=== PATIENT | male | born 1955 | race Caucasian/White ===

== ENCOUNTER 2018-03-26 08:54 | Day surgery (SDC) | payer BC, SELFPAY ==
[2018-03-26] VITALS (7 sets, daily range): BP systolic 115–135; BP diastolic 75–91; PULSE 48–57; RESP 14–18; TEMP 36.2–37.1; O2SAT 98–100; BMI 27.0
--- NOTE | 2018-03-26 09:02 | EKG12_ITS ---
Test Reason : PRE OP Blood Pressure : / mmHG Vent. Rate : 061 BPM Atrial Rate : 061 BPM P-R Int : 166 ms QRS Dur : 092 ms QT Int : 402 ms P-R-T Axes : 039 007 034 degrees QTc Int : 404 ms Normal sinus rhythm Normal ECG No previous ECGs available Confirmed by ORQUIDEA YUN, QUIRINO ([id number]), map editor FRANCIS SINGLETON ([id number]) on 03/30/2018 3:22:28 PM Referred By: Damion Ellison Confirmed By:QUIRINO HEARD MD
[2018-03-26 09:31] LABS: Hematocrit 42.3 % (40-54); Hemoglobin 13.8 g/dl (13.0-16.5); Mean Corp Hgb Conc 32.6 g/gl (32-36); Mean Corpuscular Hgb 29.1 pg (27.0-32.0); Mean Corpuscular Volume 89.2 fL (80-94); Mean Platelet Vol. 9.2 fl (6.2-12.0); Platelet Count 186 K/mm3 (150-450); RBC Distribution Width CV 12.7 % (11.6-14.6); RBC Distribution Width SD 41.2 fl (35.1-43.9); Red Blood Count 4.74 M/mm3 (4.6-6.2); White Blood Count 5.2 K/mm3 (4.4-11.0)
[2018-03-26 09:38] LABS: Scan Indicated on CBC? Y/N NO
[2018-03-26 09:47] LABS: Anion Gap 6 (5-15); BUN 24 mg/dL (7-18); BUN/Creat Ratio 22.4 RATIO (10-20); Calcium,Total 8.4 mg/dL (8.5-10.1); Chloride 108 mmol/L (98-107); Creatinine, Serum 1.07 mg/dL (0.70-1.30); EST Glomerular Filtration Rate 75 mL/min (>60); Est Glom Filt Rate - Afr Amer 90 mL/min (>60); Estimated Creatinine Clearance 79.57 ml/min; Glucose 99 mg/dL (74-106); Potassium 4.3 mmol/L (3.5-5.1); Sodium Level 140 mmol/L (136-145)
[2018-03-26] MEDS: Cefazolin 2 GM in 0.9% Normal Saline 100 ML IV (11:09)
--- NOTE | 2018-03-26 11:15 | PCM.DC.GS ---
Discharge Diet: Light diet - advance as tolerated - if you have questions about your diet instructions, please talk to you doctor. Discharge Activity: May Not Drive - for 1 week or while taking narcotic pain medicine. May shower in (days): 1 Lifting Restrictions: 10 pounds Call your doctor if your incision/area has: Continuous Slow Oozing, Sudden Increased Bleeding, Increased Pain/ Swelling, Increased Redness, Foul Smelling Discharge Call your doctor if you observe: Fever of 101 or Higher Suture Line Care: Avoid Pulling/Pushing, Avoid Pinching/Bending Additional Dressing/Incision Instructions:: Change or remove dressing in 4 days. Leave steri-strips in place for 1 week. Allergies/Adverse Reactions: Allergies No Known Allergies Allergy (Verified 03/16/18 10:48) Medications to take at Discharge glucosamine HCl 1,500 mg tablet 1,500 mg PO QDAY 03/10/18 Hydrocodone Bitart/Apap 5-325 [[place] 5MG-325MG] 1 tablet PO Q6H PRN PRN 3 Days #8 tablet 03/26/18 The following prescriptions were given: Hydrocodone Bitart/Apap 5-325 [[place] 5MG-325MG] 1 tablet PO Q6H PRN PRN 3 Days #8 tablet PRN Reason: Pain Primary Care Physician: Jaskaran Whiteside MD [Primary Care Provider] - Please Follow Up With: Damion Ellison MD - [phone] When: Call to make an appointment to be seen in about 10 days.
[2018-03-26] MEDS: Bupivacaine Mpf 0.5% 30 ML VIAL (11:55)
--- NOTE | 2018-03-26 11:56 | PCM.OPRPT ---
Problem List (1) Umbilical hernia Status: Acute Qualifiers: Obstruction and gangrene presence: without obstruction or gangrene (2) Nevus Status: Acute Report of Operation Date of Procedure: 03/26/18 Pre-Operative Diagnosis: Irregular flat nevus at the umbilicus. umbilical hernia Post-Operative Diagnosis: Same Surgery/Procedure Performed:: Excision umbilical nevus with 2 x 0.5 cm ellipse. Skin lesion measuring approximately 1.1 cm x 0.3 cm. Umbilical herniorrhaphy with 6.4 cm ventral X mesh Description of Surgical Findings:: Timeout and informed consent was obtained. 62-year-old gent was taken the operating room. He was placed on the table. He underwent general anesthesia. Ancef 2 g given intravenously preoperatively. The abdomen sterilely prepped and draped. A curvilinear incision was created the superior aspect of the umbilicus. This is where the skin nevus was located and so a elliptical excision measuring 2 x 0.5 cm was used to excise this elongated nevus. That skin specimen was submitted separately. Sharp dissection was then continued down into the subcutaneous tissue. The hernia sac and contents identified and carefully completely dissected free. Circumferential dissection was then performed around the umbilical site. The defect measured approximately 2 cm diameter. I was able to get into the preperitoneal plane and elevated tissue internally. Having achieved that I placed a 6.4 cm ventral X mesh into the preperitoneal space. It opened very nicely. I secured the tails with interrupted 0 Nurolon. The skin edges were approximated transversely with the same taking care to help secure the mesh. Excellent closure was achieved. The wound was then closed with multiple interrupted 4-0 Monocryl subdermal stitches. Steri-Strips applied cottonball Telfa OpSite dressing pressure dressing. Sponge and instrument and needle counts were reported the surgeon to be correct. Specimens include the nevus and the umbilical hernia sac and contents. Drains none. Blood loss minimal. Damion Ellison M.D., F.A.C.S. Type of Anesthesia:: General Anesthesiologist: Arnaldo Cassidy
--- NOTE | 2018-03-27 | MISC_PTH ---
PATIENT: CHIN ARTEAGA LOC: [facility] [place] U#:[id number] AGE/SX: 62/M ROOM: RE03/26/[address]: Dr. Damion Ellison MD : [id number] BED: DIS: 03/26/2018 SPEC #: [id number] RECD: 03/27/18 13:23 STATUS: JUAN MIGUEL ELENA #: [id number] ADELINA: 03/27/18 00:[address]: Damion Ellison DEPT: SURGICAL PATHOLOGY RECD BY: Derek Keller ENTERED: 03/27/18 13:25 SP [place] [facility] [place]: Dr. Jaskaran Whiteside MD Tissues: A - Skin of abdomen, NOS B - HERNIA Procedures: Surgery Specimen Level II Surgery Specimen Level IV HEADER OPERATION: Hernia, Umbilical repair mesh/excision umbilical nevus PRE-OP DIAGNOSIS: Umbilical hernia/umbilical nevus TISSUE SUBMITTED: A. Umbilical nevus, B. Hernia sac MICROSCOPIC DIAGNOSIS A. Umbilical nevus, biopsy: Compound nevus, completely excised. B. Hernia sac: Mesothelial lined fibroadipose and fibroconnective tissue, consistent with hernia sac. DUKE:salty 03/30/18 MICROSCOPIC DESCRIPTION Slides are reviewed. GROSS DESCRIPTION A. Received in fixative is one container labeled with the patient's name and designated umbilical nevus. The specimen consists of a piece of franklin-white skin ellipse measuring 2 x 0.5 cm and up to 0.3 cm in thickness. The specimen is inked, serially sectioned and submitted entirely in one cassette. B. Received is one container labeled with the patient name and designated hernia sac. The specimen consists of two pieces of yellow adipose tissue that in aggregate measure 3 x 2.5 x 2 cm. The section did not reveal any mass lesions. Fisher Net sections are submitted in 1 cassette. DUKE:salty 03/27/18 TC:1 CPT:55139, 60790
== END 2018-03-26 15:05 | disposition home or self-care (01) ==
LOC: SDC 08:58 → AC 08:58
PROVIDERS: Family Provider Family Medicine; PCP Family Medicine; Visit Provider Surgery
PROC: (CPT 11403; principal; 2018-03-26 11:00)
DX: K42.9 Umbilical hernia without obstruction or gangrene (principal); D22.9 Melanocytic nevi, unspecified; K40.20 Bilateral inguinal hernia, without obstruction or gangrene, not specified as recurrent
CPT/HCPCS: 11403; 49585; 36415; 80048; 85027; 88302; 88305; 93005; C1781; J7120; J0330; J2405

== ENCOUNTER → 2018-09-17 08:41 | Outpatient (CLI) | payer BC, SELFPAY ==
--- NOTE | 2018-09-17 08:45 | AAVD_ITS ---
Reason For Study: pulsating feeling, adb fullness Aorta Measurements Aorta Doppler Measurements Proximal aorta measures1.76 x 1.72cm. in cross- Peak systolic flow velocities within the proximal sectional axis. aorta measure 89.4 cm/sec. Proximal aorta measures1.58cm. in longitudinal Peak systolic flow velocities within the mid aorta axis. measure 106 cm/sec. Mid aorta measures1.33 x 1.46cm. in cross- Peak systolic flow velocities within the distal sectional axis. aorta measure 126 cm/sec. Mid aorta measures1.39cm. in longitudinal axis. Distal aorta measures1.56 x 1.56cm. in cross- sectional axis. Distal aorta measures1.5cm. in longitudinal axis. Left Iliac Artery Left iliac artery measures 1.22 x 1.16 cm. in the cross-sectional axis. Left iliac artery measures 1.14 cm. in the longitudinal axis. Peak systolic velocity in the left iliac artery measures 77.5 cm/sec. Right Iliac Artery Right iliac artery measures .878 x .960 cm. in the cross-sectional axis. Right iliac artery measures .904 cm. in the longitudinal axis. Peak systolic velocity in the right iliac artery measures 79.3 cm/sec. Interpretation Summary The intra-abdominal aorta appears to be of normal caliber, without evidence of aneurysmal dilatation. The iliac arteries also appear to be normal in size bilaterally. The intra-abdominal aorta and iliac arteries are patent, demonstrating normal, pulsatile arterial flow and normal peak systolic velocities. Ordering Physician: Jaskaran Whiteside Performed By: Car Brannon RVT
== END ==
PROVIDERS: Family Provider Family Medicine; PCP Family Medicine; Referring Provider Family Medicine; Visit Provider Family Medicine
DX: R19.8 Other specified symptoms and signs involving the digestive system and abdomen (principal)
CPT/HCPCS: 93978

== ENCOUNTER → 2019-06-14 10:06 | Outpatient (CLI) | payer BC, SELFPAY ==
[2018-03-26 09:31] VITALS: BMI 27.0
[2019-06-14 12:50] LABS: Cholesterol 157 mg/dL (200); High Density Lipoprotein 48 mg/dL; Triglycerides 38 mg/dL; Very Low Density Lipoprotein 8 mg/dL (5-40)
== END ==
PROVIDERS: Family Provider Family Medicine; PCP Family Medicine; Visit Provider Family Medicine
DX: Z13.220 Encounter for screening for lipoid disorders (principal); Z12.5 Encounter for screening for malignant neoplasm of prostate
CPT/HCPCS: 36415; 80061; 84153; G0103

== ENCOUNTER → 2020-07-06 07:38 | Outpatient (CLI) | payer BC, SELFPAY ==
[2018-03-26 09:31] VITALS: BMI 27.0
[2020-07-06 10:26] LABS: AST(SGOT) 17 U/L (15-37); Alanine Aminotransfer ALT/SGPT 20 U/L (16-61); Albumin, Serum 3.7 g/dL (3.2-5.0); Alkaline Phosphatase 73 U/L (45-117); Anion Gap 4 (5-15); BUN 22 mg/dL (7-18); Calcium,Total 8.7 mg/dL (8.5-10.1); Chloride 102 mmol/L (98-107); Cholesterol 157 mg/dL (200); Creatinine, Serum 1.16 mg/dL (0.70-1.30); EST Glomerular Filtration Rate 68 mL/min (>60); Est Glom Filt Rate - Afr Amer 82 mL/min (>60); Globulin 3.8 g/dL (2.2-4.2); Glucose 96 mg/dL (74-106); High Density Lipoprotein 49 mg/dL; PSA,Total - Annual Screen 1.34 ng/mL (0.00-4.00); Potassium 3.9 mmol/L (3.5-5.1); Protein, Total 7.5 g/dL (6.4-8.2); Sodium Level 138 mmol/L (136-145); Triglycerides 55 mg/dL; Very Low Density Lipoprotein 11 mg/dL (5-40)
== END ==
PROVIDERS: PCP Family Medicine; Referring Provider Family Medicine; Visit Provider Family Medicine
DX: Z13.220 Encounter for screening for lipoid disorders (principal); Z13.1 Encounter for screening for diabetes mellitus; Z12.5 Encounter for screening for malignant neoplasm of prostate
CPT/HCPCS: 36415; 80053; 80061; 84153; G0103

== ENCOUNTER 2020-12-14 16:47 | Outpatient (RCR) | payer BC, SELFPAY ==
[2020-12-14] MEDS: COVID-19 VACC, MRNA(PFIZER)/PF 30 MCG/0.3 ML SYRINGE IM (15:48)
[2021-01-04] MEDS: COVID-19 VACC, MRNA(PFIZER)/PF 30 MCG/0.3 ML SYRINGE IM (15:25)
== END 2020-12-14 23:59 ==
LOC: IMMUN 16:47
PROVIDERS: PCP Family Medicine; Visit Provider Family Medicine
DX: Z23 Encounter for immunization (principal)
CPT/HCPCS: 0001A; 0002A; 91300

== ENCOUNTER → 2021-07-18 12:22 | Outpatient (CLI) | payer BC, SELFPAY ==
[2021-07-18 15:29] LABS: Creatinine, Serum 1.12 mg/dL (0.70-1.30); EST Glomerular Filtration Rate 70 mL/min (>60); Est Glom Filt Rate - Afr Amer 85 mL/min (>60)
[2021-07-18 15:56] LABS: Hepatitis C Antibody Non-Reactive (Nonreactive)
== END ==
PROVIDERS: PCP Family Medicine; Referring Provider Family Medicine; Visit Provider Family Medicine
DX: Z00.00 Encounter for general adult medical examination without abnormal findings (principal); Z11.59 Encounter for screening for other viral diseases
CPT/HCPCS: 36415; 82565; 86803

== ENCOUNTER 2022-01-03 08:54 | Day surgery (SDC) | payer MEDICARE, BC, SELFPAY ==
--- NOTE | 2022-01-01 08:54 | EKG12_ITS ---
Test Reason : PREOP Blood Pressure : / mmHG Vent. Rate : 061 BPM Atrial Rate : 061 BPM P-R Int : 148 ms QRS Dur : 086 ms QT Int : 382 ms P-R-T Axes : 046 014 053 degrees QTc Int : 384 ms Normal sinus rhythm Normal ECG Confirmed by VIANNEY YUN, DARIAN ([id number]), society editor FEDERICA RODRIGUEZ ([id number]) on 01/02/2022 11:40:57 AM Referred By: Damion Ellison Confirmed By:DARIAN FAITH MD
[2022-01-01 09:39] LABS: Hematocrit 42.4 % (40-54); Mean Corpuscular Hgb 29.8 pg (27.0-32.0); Mean Corpuscular Volume 90.2 fL (80-94); Mean Platelet Vol. 9.3 fl (6.2-12.0); Platelet Count 226 K/mm3 (150-450); RBC Distribution Width CV 12.5 % (11.6-14.6); RBC Distribution Width SD 41.2 fl (35.1-43.9); White Blood Count 5.9 K/mm3 (4.4-11.0)
[2022-01-01 10:01] LABS: Anion Gap 2 (5-15); BUN 22 mg/dL (7-18); BUN/Creat Ratio 19.8 RATIO (10-20); Calcium,Total 8.7 mg/dL (8.5-10.1); Chloride 104 mmol/L (98-107); Creatinine, Serum 1.11 mg/dL (0.70-1.30); EST Glomerular Filtration Rate 71 mL/min (>60); Est Glom Filt Rate - Afr Amer 86 mL/min (>60); Glucose 101 mg/dL (74-106); Sodium Level 137 mmol/L (136-145)
[2022-01-03] VITALS (9 sets, daily range): BP systolic 120–141; BP diastolic 69–86; PULSE 55–86; RESP 16; TEMP 36.4–37.2; O2SAT 96–99; BMI 27.1
[2022-01-03] MEDS: Lactated Ringers 1,000 ML 15 ML IV ×2 (09:10→10:46)
--- NOTE | 2022-01-03 09:20 | PCM.HP.BLA ---
History and Physical Date of Admission: 01/03/22 Chief Complaint: [facility] Staffing And Scheduling Coordinator Required: No Is patient in pain?: No Allergies No Known Allergies Allergy (Verified 12/04/21 14:24) Medications glucosamine HCl 1,500 mg tablet 1,500 mg PO QDAY 03/10/18 [History Confirmed 04/02/18] ascorbic acid 100 mg-elderberry fruit 50 mg chewable tablet tab PO 12/04/21 [History Confirmed 12/04/21] meloxicam 7.5 mg tablet 7.5 mg PO DAILY 12/04/21 [History Confirmed 12/04/21] tamsulosin 0.4 mg capsule 0.4 mg PO QHS #30 cap 12/04/21 [Rx Confirmed 12/04/21] PFSH Medical History Inguinal hernia bilateral, non-recurrent Surgical History H/O umbilical hernia repair Status post right knee surgery Umbilical hernia Family History Mother Diabetes Heart disease Kidney disease Social History Smoking Status: Never smoker alcohol intake: never HPI HPI HPI: CHIN HERNANDEZ, is a 66 M who presents to the office today for surgical consultation regarding a possible hernia. It is of note that on March 26, 2018 I performed excision of an umbilical nevus with concomitant umbilical herniorrhaphy with placement of 6.4 cm Ventralex mesh in the preperitoneal plane. 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 He still is very physically active. He plays basketball and pickle ball and golf and does spinning classes during the winter. He is very happy with his umbilical hernia repair which is remained very solid. July he had a sinus head congestion coughing spell. He did not get tested for COVID-19. He assumed that it was simply a routine cold. No one else that he was in contact with became sick. He is vaccinated and booster. ROS General General: No weight change, appetite, fatigue, colon cancer, breast cancer or weakness HEENT HEENT: No difficulty swallowing, eye injury, eye surgery, swollen glands or hoarseness Endo Endocrine: No thyroid disease, diabetes mellitus, thyroid cancer, Hair loss, heat intolerance or cold intolerance Skin Skin: No rash or changing moles Breast Breast: No left breast lump, right breast lump, nipple discharge, breast pain, abnormal mammogram, abnormal US or breast enlargement Musc Musculoskeletal: No back problems, arthritis, rheumatoid arthritis, gout or joint pain Cardio Cardiovascular: No murmur, pacemaker, heart disease, atrial fibrillation, high blood pressure, heart attack, heart stent, palpitations, shortness of breat with exertion or chest pain Psych Psychiatric: No depression, anxiety or hearing voices Resp Respiratory: No shortness of breath, No sleep apnea, No cough, No COPD, No asthma, No emphysema and No wheezing Gastro Gastrointestinal: No abdominal pain, No nausea or vomiting, No diarrhea, No constipation, No blood in stool, No acid reflux, No hemorrhoids, No ulcers, No gallbladder problem and No black,tarry stools Behzad Hematologic: No blood thinners, No blood disorders, No bleeding, No anemia and No blood clots Neuro Neurologic: No system reviewed and no additional complaints, except as documented, No as per HPI, No abnormal gait, No abnormal hearing, No abnormal movements, No abnormal speech, No behavioral changes, No burning sensations, No confusion, No convulsions, No disequilibrium, No dizziness, No localized weakness, No frequent falls, No headache(s), No lack of coordination, No loss of vision, No memory loss, No numbness, No other visual disturbances, No radicular pain, No restless legs, No sensory deficit, No syncope, No tingling, No tremor(s), No weakness and No other Exam Const General: cooperative, healthy appearing, comfortable and no acute distress Nutritional Appearance: well nourished Orientation: alert and awake [facility] Head: normal to inspection Eyes General: appearance normal, both eyes and all related structures Neck Neck: normal visual inspection Resp Effort & Inspection: normal respiratory effort Auscultation: clear to auscultation bilaterally Cardio Rate: regular rate GI Palpation: no hepatosplenomegaly Other: Well-healed incision at the umbilicus solid and intact Other: Testicles are descended bilaterally without mass. Left greater than right inguinal hernia currently reducible Musc Cervical Spine: normal cervical lordosis Skin General: no rashes or lesions noted Neuro General: patient alert, patient awake and patient oriented x3 Extrem General: no calf tenderness Psych Appearance: grossly normal Assessment and Plan Assessment and Plan (1) Inguinal hernia bilateral, non-recurrent: Status: Acute Qualifiers: Obstruction and gangrene presence: without obstruction or gangrene Recurrence: non-recurrent Qualified Code(s): K40.20 - Bilateral inguinal hernia, without obstruction or gangrene, not specified as recurrent Plan - Dr. Damion Ellison MD: Bilateral inguinal hernias both enlarging with intermittent symptoms on the left. I recommend to him that we initiate Flomax therapy 0.4 mg nightly 2 weeks prior to planned surgery due to the extent of the planned procedure. He only infrequently has nocturia however with bilateral repair that does increase his risk of urinary retention. We discussed technique benefit risk complication alternatives. Because of his mesh repair with the Ventralex at the umbilicus I plan for a open approach slightly superior to the umbilicus. I of course plan bilateral inguinal nerve blocks. The patient is very physically active. I want to assure that I have good coverage of all defect areas. He has had an opportunity to ask and have questions answered. He will be checking with Dr. Rowland regarding timing of his next screening colonoscopy. He has had an opportunity ask have questions answered and we will schedule procedure as noted. He will need to take 7 to 10 days off from his practice. He will need to curtail his physical activities for 4 to 8 weeks. Copy: Dr. Eder Ellison M.D., F.A.C.S. I have re-examined the patient. There are no clinical changes since date of exam. Damion Ellison M.D., F.A.C.S.
--- NOTE | 2022-01-03 09:21 | EX.PCM.DISCH ---
Discharge Instructions Procedure General Surgery Diet Discharge Diet: Light diet - advance as tolerated (if you have questions about your diet instructions, please talk to you doctor.) Activity Discharge Activity: May Not Drive (for 3-5 days or while taking narcotic pain medicine.) May shower in (days): 1 Lifting Restrictions: 10 pounds Dressing / Incision Call your doctor if your incision/area has: Continuous Slow Oozing, Sudden Increased Bleeding, Increased Pain/ Swelling, Increased Redness and Foul Smelling Discharge Call your doctor if you observe: Fever of 101 or Higher Suture Line Care: Avoid Pulling/Pushing and Avoid Pinching/Bending Additional Dressing/Incision Instructions:: Change or remove dressing in 4 days. Leave steri-strips in place for 1 week. Follow Up Care Please Follow Up With: Damion Ellison MD When: Call [phone] to make an appointment to be seen in about 10 days. Test Results: Test results from this visit will be discussed in further detail at your follow-up appointment, if applicable. Discharge Plan Admission Attending Provider: Damion Ellison Primary Care Provider: Eder Almanza Discharge Orders/Prescriptions Prescriptions: No Action glucosamine HCl 1,500 mg tablet 1,500 mg PO QDAY RF: 0 meloxicam 7.5 mg tablet 7.5 mg PO DAILY RF: 0 ascorbic acid-elderberry fruit 100-50 mg tablet,chewable 2 tab PO DAILY RF: 0 tamsulosin [Flomax] 0.4 mg capsule 0.4 mg PO QHS Qty: 30 RF: 0 Other Ambulatory Orders: 12 Lead EKG (Routine) Location: None Selected Ordered By: Dr. Damion Ellison
[2022-01-03] MEDS: Cefazolin 2 GM in 0.9% Normal Saline 100 ML IV (10:50)
[2022-01-03] MEDS: Bupivacaine Mpf 0.5% 30 ML VIAL (11:05)
[2022-01-03] MEDS: Lidocaine 1% (20 ml mdv) 20 ML Vial (11:05)
--- NOTE | 2022-01-03 12:29 | PCM.OPRPT ---
Problems Associated Problem List Diagnoses (1) Inguinal hernia bilateral, non-recurrent: Report of Operation Date of Procedure: 01/03/22 Pre-Operative Diagnosis: Bilateral inguinal hernias Post-Operative Diagnosis: Bilateral none recurrent indirect inguinal hernias Surgery/Procedure Performed:: Laparoscopic bilateral inguinal herniorrhaphy Bard 3D max extra-large left: Lot number [id number], reference [id number], expiry date 04/25/2026 Bard 3D max extra-large right: Lot number [id number], reference [id number], expiry date 05/26/2026 Secure strap Lot number [id number], expiry date April 20 Description of Surgical Findings:: Timeout informed consent was obtained. Patient was taken to the operating place upon the table underwent general endotracheal intubation anesthesia. Ancef 2 g were given intravenously. The abdomen sterilely prepped and draped. 0.5% Marcaine mixed 30 cc with 20 cc of 1% lidocaine was used as a local anesthetic. Because of the patient's previous mesh repair of an umbilical hernia I made a transverse supraumbilical incision sharp dissection carried down through the subcu tissue the fascia was incised then only peritoneum remained in a varies needle inserted saline drop test performed the abdomen was insufflated with CO2 to a pressure of 10 mmHg pressure. 10 mm trocar inserted. 10 mm laparoscope inserted. No mass or internal injuries. There were no adhesions at the umbilicus. 5 mm trochars were placed in the right and left lower quadrant a laparoscopic visualization. Bilateral ilioinguinal nerve blocks were performed with a local anesthetic under laparoscopic visualization. There was a quite sizable indirect inguinal hernia on the left with colonic involvement. The colon was reduced the peritoneum superior lateral to the internal ring was incised and carried medially. The large hernia sac was tediously bluntly and sharply dissected free. Sizable cord lipoma was encountered and this was dissected free. The peritoneum was reflected generously. The direct indirect spaces identified as the urinary bladder was carefully protected as the medial dissection was performed. Having achieved the exposure I then approached the right side with a similar technique incising the peritoneum reflecting the peritoneal tissue reducing the indirect hernia sac and identifying the direct indirect and femoral area. The gap from the left was connected and exposed with this dissection. Then subsequently an extra-large Bard 3D max mesh was placed on the left carefully positioned to cover indirect direct and femoral defect it was secured in place laterally superiorly and medially with secure strap. The extra-large right was then placed just gently overlapping the mesh from the left. It also secured in place laterally superiorly and medially. Excellent coverage of both hernial defects was achieved bilaterally. The peritoneum was then approximated to itself bilaterally using combination secure strap and Hem-o-britt clips. Complete obliteration to the mesh was achieved. The abdomen was allowed to deflate through an antiviral valve. The supraumbilical fascia was closed with a running 0 Vicryl suture. Skin edges approximated opted for Monocryl subdermal stitches. Steri-Strips Telfa OpSite dressings applied. Sponge and instrument and needle counts were reported to the surgeon to be correct. Specimens none. Drains none. Blood loss minimal. The patient was taken to the recovery area in satisfactory addition without apparent complication Damion Ellison M.D., F.A.C.S. Surgeon: Damion Ellison Type of Anesthesia: General and Local Anesthesiologist: David Lim
--- NOTE | 2022-01-03 18:23 | SUR.PHASEII ---
THIS NURSE CALLED SPOKE WITH DR. LARSON ON THE PHONE ABOUT PT'S URINARY RETENTION. PER DR. LARSON TELEPHONE ORDER PT TO HAVE CATHETER PLACED TO REMAIN IN OVER THE WEEKEND, AFTER PLACEMENT PT TO BE DISCHARGED HOME PER DR. LARSON.
== END 2022-01-03 23:59 | disposition home or self-care (01) ==
LOC: SDC 08:55 → AC 08:56
PROVIDERS: PCP Family Medicine; Referring Provider Surgery; Visit Provider Surgery
PROC: (CPT 49650; principal; 2022-01-03 10:40)
DX: K40.21 Bilateral inguinal hernia, without obstruction or gangrene, recurrent (principal); Z87.19 Personal history of other diseases of the digestive system; Z98.890 Other specified postprocedural states
CPT/HCPCS: 49650; 00840; 36415; 80048; 85027; 93005; J7120; C1781; J2405

== ENCOUNTER 2022-01-10 09:15 | Outpatient (CLI) | payer MEDICARE, BC, SELFPAY ==
[2022-01-10 09:18] LABS: Mucous, Urine 0 SEEN /hpf (<or=2+); Squamous Epithelial Cells - UA 0 SEEN /hpf (0-5)
[2022-01-10 10:38] LABS: Color, Urine Yellow (Yellow); Glucose, Dipstick Normal (Normal); Ketone-Dipstick 5 mg/dl (Negative); Leukocyte Esterase-Dipstick 500 /ul (Negative); Nitrite-Dipstick Positive (Negative); Occult Blood-Urine 250 /ul (Negative); Protein-Dipstick 100 mg/dl (Negative); Specific Gravity, Urine 1.025 (1.002-1.030); Urine Clarity Cloudy (Clear); Urine Urobilinogen 4 mg/dl (Normal)
[2022-01-10 10:42] LABS: Urine Bilirubin Dipstick 1 mg/dL (Negative)
[2022-01-10 10:44] LABS: Bacteria 2+ /hpf (None Seen); Red Blood Cells-Urine 50-100 SEEN /hpf (0-5); White Blood Cells >100 SEEN /hpf (0-5)
== END 2022-01-10 23:59 | disposition home or self-care (01) ==
LOC: LAB 09:15
PROVIDERS: PCP Family Medicine; Referring Provider Physician Assistant; Visit Provider Physician Assistant
DX: R31.9 Hematuria, unspecified (principal); R35.0 Frequency of micturition; R30.0 Dysuria; R50.9 Fever, unspecified
CPT/HCPCS: 36415; 81001; 85025; 87077; 87086; 87088; 87186

== ENCOUNTER 2022-01-10 13:46 | Outpatient (CLI) | payer MEDICARE, BC, SELFPAY ==
[2022-01-10 14:25] LABS: Absolute Lymphocyte Count 1.36 X10^3/uL (0.83-4.51); Absolute Neutrophil Count 8.3 X10^3/uL (2.0-7.7); Basophil# 0.04 X10^3/uL; Basophil% 0.4 % (0-1); Eosinophil# 0.21 X10^3/uL; Eosinophils% 1.9 % (0-5); Hematocrit 41.5 % (40-54); Hemoglobin 13.6 g/dL (13.0-16.5); Lymphocyte # 1.36 X10^3/ul (0.83-4.51); Mean Corp Hgb Conc 32.8 g/dL (32-36); Mean Corpuscular Hgb 30.1 pg (27.0-32.0); Mean Corpuscular Volume 91.8 fL (80-94); Mean Platelet Vol. 8.9 fl (6.2-12.0); Monocyte# 1.37 X10^3/uL; Monocyte% 12.1 % (0-10); NRBC Flagged by Analyzer 0 % (0-5); Neutrophil # 8.26 X10^3/uL (2.7-7.7); Neutrophil % 73.2 % (47-70); Platelet Count 184 K/mm3 (150-450); RBC Distribution Width CV 12.5 % (11.6-14.6); RBC Distribution Width SD 41.8 fl (35.1-43.9); Red Blood Count 4.52 M/mm3 (4.6-6.2); White Blood Count 11.3 K/mm3 (4.4-11.0)
== END 2022-01-10 23:59 | disposition home or self-care (01) ==
LOC: PAVLAB 13:48
PROVIDERS: PCP Family Medicine; Referring Provider Physician Assistant; Visit Provider Physician Assistant
DX: R39.9 Unspecified symptoms and signs involving the genitourinary system (principal)
CPT/HCPCS: 36415; 85025

== ENCOUNTER → 2022-04-17 | Outpatient (CLI) | payer MEDICARE, BC, SELFPAY ==
[2022-04-17 10:14] LABS: AST(SGOT) 19 U/L (15-37); Alanine Aminotransfer ALT/SGPT 19 U/L (16-61); Albumin, Serum 3.5 g/dL (3.2-5.0); Alkaline Phosphatase 76 U/L (45-117); Anion Gap 4 (5-15); BUN 21 mg/dL (7-18); BUN/Creat Ratio 18.6 RATIO (10-20); Calcium,Total 8.8 mg/dL (8.5-10.1); Chloride 106 mmol/L (98-107); Cholesterol 166 mg/dL (200); Creatinine, Serum 1.13 mg/dL (0.70-1.30); EST Glomerular Filtration Rate 69 mL/min (>60); Est Glom Filt Rate - Afr Amer 84 mL/min (>60); Globulin 3.6 g/dL (2.2-4.2); Glucose 102 mg/dL (74-106); High Density Lipoprotein 54 mg/dL; PSA,Total - Annual Screen 5.53 ng/mL (0.00-4.00); Potassium 4.3 mmol/L (3.5-5.1); Protein, Total 7.1 g/dL (6.4-8.2); Sodium Level 137 mmol/L (136-145); Triglycerides 62 mg/dL; Very Low Density Lipoprotein 12 mg/dL (5-40)
== END | disposition home or self-care (01) ==
PROVIDERS: PCP Family Medicine; Referring Provider Family Medicine; Visit Provider Family Medicine
DX: Z20.822 Contact with and (suspected) exposure to COVID-19 (principal); Z00.00 Encounter for general adult medical examination without abnormal findings; Z12.5 Encounter for screening for malignant neoplasm of prostate
CPT/HCPCS: 36415; 80053; 80061; 84153; G0103

== ENCOUNTER → 2022-08-27 | Outpatient (CLI) | payer MEDICARE, BC, SELFPAY ==
[2022-08-27 13:24] LABS: PSA,Total- Diagnostic 3.67 ng/mL (0.0-4.0)
== END | disposition home or self-care (01) ==
LOC: MFPLAB 11:04
PROVIDERS: PCP Family Medicine; Referring Provider Family Medicine; Visit Provider Family Medicine
DX: R97.20 Elevated prostate specific antigen [PSA] (principal)
CPT/HCPCS: 36415; 84153

== ENCOUNTER 2022-10-22 06:24 | Day surgery (SDC) | payer MEDICARE, OTHER, SELFPAY ==
[2022-10-22] VITALS (8 sets, daily range): BP systolic 101–111; BP diastolic 66–74; PULSE 52–65; RESP 14–18; TEMP 36.6–36.9; O2SAT 94–97; BMI 27.6
[2022-10-22] MEDS: Lactated Ringers 1,000 ML 15 ML IV (06:40)
--- NOTE | 2022-10-22 06:59 | PCM.HP.STD ---
[facility] - General General Date of Service: 10/22/22 Chief Complaint: Personal history of colon polyps [facility] Narrative CHIN ARTEAGA, is a 66 M who presents via open access today for colonoscopy. He has a personal history of colon polyps. Density Dr. Fernando Rowland did a colonoscopy with polyp removal in 2008. Then it would appear that his most recent colonoscopy was August 2014. I assisted him with an inguinal hernia repair January 04, 2022. [facility] Medical History (Updated 10/22/22 @ 07:[address] Damion Ellison MD) Arthritis History of left inguinal hernia Inguinal hernia bilateral, non-recurrent Non-smoker Urinary tract infection Wears glasses Home Medications glucosamine HCl 1,500 mg tablet 1,500 mg PO QDAY 03/10/18 [History Last Taken Unknown] meloxicam 7.5 mg tablet 7.5 mg PO PRN PRN Pain 12/04/21 [History Last Taken Unknown] Allergy/AdvReac Type Severity Reaction Status Date / Time No Known Allergies Allergy Verified 10/18/22 12:35 Family History Mother Diabetes Heart disease Kidney disease Grandmother Colon cancer Aunt Colon cancer Uncle Colon cancer Surgical History (Updated 10/18/22 @ 12:40 by Columba Shepard) H/O umbilical hernia repair History of colonoscopy History of left inguinal hernia repair (~12/2021) Status post right knee surgery Social History (Updated 08/20/22 @ 12:46 by Kaylah Dorado) household members: spouse Smoking Status: Never smoker alcohol intake: never ROS Constitutional Constitutional: Reports systems reviewed and no addt'l complaints, except as documented Cardiovascular Cardiovascular: Denies chest pain Respiratory/Chest Respiratory/Chest: Denies shortness of breath at rest Gastrointestinal Gastrointestinal: Denies abdominal pain, change in bowel habits, hematochezia or melena Vital Signs Vital Signs Vital Signs: 10/22/22 06:52 10/22/22 06:52 Temperature 97.8 F Temperature Source Temporal Pulse Rate 65 Respiratory Rate 16 Respiratory Pattern Normal Blood Pressure 109/74 Blood Pressure Mean 85 Blood Pressure Source Monitor Blood Pressure Position Sitting Blood Pressure Location Right Arm Pulse Ox 97 Oxygen Delivery Method Room Air Weight Weight: 203 lb 11.314 oz Body Mass Index (BMI) 27.6 Physical Exam Const alert, oriented x3 and no apparent distress General Appearance: cooperative and comfortable Eyes General Eye: normal appearance of both eyes Neck General: normal visual inspection Chest inspection of chest normal Resp Effort and Inspection: able to speak in complete sentences and symmetric chest movement Auscultation: clear to auscultation bilaterally Cardio regular rate and regular rhythm GI soft to palpation, non-tender and non-distended Extremity no calf tenderness Neuro oriented x3 Psych thought process normal Assessment & Plan Assessment/Plan (1) Personal history of colonic polyps: PLAN: The patient presents via open access today for a surveillance colonoscopy. He is aware of the technique, benefit, risk, alternatives. He has had an opportunity to ask and have questions answered. We will proceed as noted. Damion Ellison M.D., F.A.C.S.
--- NOTE | 2022-10-22 07:51 | OP.CCLET_ITS ---
10/22/2022 Eder Almanza [address] [place] [address] Re : Colonoscopy procedure for Skip Hernandez Dear Dr. Almanza This procedure was performed on Saturday, October 22, 2022. My impressions and recommendations are as follows: Impressions : - Non-thrombosed external hemorrhoids, non-thrombosed internal hemorrhoids and internal hemorrhoids that prolapse with straining, but spontaneously regress to the resting position (Grade II) found on digital rectal exam. - Diverticulosis in the sigmoid colon and in the descending colon. - The examination was otherwise normal. - No specimens collected. Recommendations : - Discharge patient to home. - Resume previous diet. - Continue present medications. - Repeat colonoscopy in 10 years for screening purposes. My findings are described in the full procedure note, which is enclosed. If I can be of further assistance, please feel free to contact me at Doctor phone number(s): Work: . Sincerely, Damion Ellison MD 10/22/2022 7:50:37 AM This report has been signed electronically.
--- NOTE | 2022-10-22 07:51 | OP.COLON_ITS ---
Patient Name: Skip Hernandez Procedure Date: 10/22/2022 7:31 AM Date of : 1955 Age: 66 Procedure: Colonoscopy Indications: High risk colon cancer surveillance: Personal history of colonic polyps Providers: Damion Ellison MD Medicines: See the Anesthesia note for documentation of the administered medications Patient Profile: Last Colonoscopy: August 2014. Complications: No immediate complications. Procedure: Pre-Anesthesia Assessment: - Prior to the procedure, a History and Physical was performed, and patient medications and allergies were reviewed. The patient's tolerance of previous anesthesia was also reviewed. The risks and benefits of the procedure and the sedation options and risks were discussed with the patient. All questions were answered, and informed consent was obtained. Prior Anticoagulants: The patient has taken no previous anticoagulant or antiplatelet agents. ASA Grade Assessment: II - A patient with mild systemic disease. After reviewing the risks and benefits, the patient was deemed in satisfactory condition to undergo the procedure. After I obtained informed consent, the scope was passed under direct vision. Throughout the procedure, the patient's blood pressure, pulse, and oxygen saturations were monitored continuously. The adult colonoscope was introduced through the anus and advanced to the cecum, identified by appendiceal orifice and ileocecal valve. The colonoscopy was performed without difficulty. The patient tolerated the procedure well. The quality of the bowel preparation was good. The ileocecal valve and the appendiceal orifice were photographed. Scope In: 7:36:58 AM Scope Out: 7:46:37 AM Total Procedure Duration Time 0 hours 9 minutes 39 seconds Findings: The digital rectal exam findings include non-thrombosed external hemorrhoids, non-thrombosed internal hemorrhoids and internal hemorrhoids that prolapse with straining, but spontaneously regress to the resting position (Grade II). Pertinent negatives include normal prostate (size, shape, and consistency). Scattered diverticula were found in the sigmoid colon and descending colon. The exam was otherwise without abnormality. Impression: - Non-thrombosed external hemorrhoids, non-thrombosed internal hemorrhoids and internal hemorrhoids that prolapse with straining, but spontaneously regress to the resting position (Grade II) found on digital rectal exam. - Diverticulosis in the sigmoid colon and in the descending colon. - The examination was otherwise normal. - No specimens collected. Recommendation: - Discharge patient to home. - Resume previous diet. - Continue present medications. - Repeat colonoscopy in 10 years for screening purposes. Procedure Code(s): --- Professional --- 18716, Colonoscopy, flexible; diagnostic, including collection of specimen(s) by brushing or washing, when performed (separate procedure) Diagnosis Code(s): --- Professional --- Z86.010, Personal history of colonic polyps K64.1, Second degree hemorrhoids K64.4, Residual hemorrhoidal skin tags K57.30, Diverticulosis of large intestine without perforation or abscess without bleeding CPT copyright 2017 [employer]. All rights reserved. The codes documented in this report are preliminary and upon new business clerk review may be revised to meet current compliance requirements. Damion Ellison MD 10/22/2022 7:50:37 AM This report has been signed electronically. Number of Addenda: 0 Note Initiated On: 10/22/2022 7:31 AM
== END 2022-10-22 08:40 | disposition home or self-care (01) ==
LOC: EN 06:25 → AC 06:26
PROVIDERS: PCP Family Medicine; Referring Provider Family Medicine; Visit Provider Surgery
PROC: 0DJD8ZZ Inspection of Lower Intestinal Tract, Via Natural or Artificial Opening Endoscopic (ICD-10-PCS; CPT 45378; principal; 2022-10-22 07:25)
DX: Z12.11 Encounter for screening for malignant neoplasm of colon (principal); K64.1 Second degree hemorrhoids; K57.30 Diverticulosis of large intestine without perforation or abscess without bleeding; Z86.010 Personal history of colon polyps; Z79.1 Long term (current) use of non-steroidal anti-inflammatories (NSAID); K64.4 Residual hemorrhoidal skin tags; Z80.0 Family history of malignant neoplasm of digestive organs
CPT/HCPCS: 45378; J7120; J2405

== ENCOUNTER → 2023-04-29 | Outpatient (CLI) | payer MEDICARE, OTHER, SELFPAY ==
[2023-04-29 12:20] LABS: ALB/GLOB Ratio 0.9 RATIO (0.9-2.4); AST(SGOT) 21 U/L (15-37); Alanine Aminotransfer ALT/SGPT 18 U/L (16-61); Albumin, Serum 3.4 g/dL (3.2-5.0); Alkaline Phosphatase 77 U/L (45-117); Anion Gap 3 (5-15); BUN 19 mg/dL (7-18); BUN/Creat Ratio 17.4 RATIO (10-20); Calcium,Total 8.6 mg/dL (8.5-10.1); Chloride 109 mmol/L (98-107); Cholesterol 151 mg/dL (200); Creatinine, Serum 1.09 mg/dL (0.70-1.30); EST Glomerular Filtration Rate 72 mL/min (>60); Est Glom Filt Rate - Afr Amer 87 mL/min (>60); Globulin 3.8 g/dL (2.2-4.2); Glucose 100 mg/dL (74-106); High Density Lipoprotein 50 mg/dL; PSA,Total- Diagnostic 3.76 ng/mL (0.0-4.0); Potassium 4.5 mmol/L (3.5-5.1); Protein, Total 7.2 g/dL (6.4-8.2); Sodium Level 140 mmol/L (136-145); Triglycerides 62 mg/dL; Very Low Density Lipoprotein 12 mg/dL (5-40)
== END | disposition home or self-care (01) ==
LOC: MFPLAB 09:30
PROVIDERS: PCP Family Medicine; Visit Provider Family Medicine
DX: R97.20 Elevated prostate specific antigen [PSA] (principal); Z13.6 Encounter for screening for cardiovascular disorders
CPT/HCPCS: 36415; 80053; 80061; 84153

== ENCOUNTER → 2024-05-11 | Outpatient (CLI) | payer MEDICARE, OTHER, SELFPAY ==
[2024-05-11 12:28] LABS: Creatinine, Serum 1.09 mg/dL (0.70-1.30); EST Glomerular Filtration Rate 72 mL/min (>60); Est Glom Filt Rate - Afr Amer 87 mL/min (>60); PSA,Total - Annual Screen 2.91 ng/mL (0.00-4.00)
== END | disposition home or self-care (01) ==
LOC: MFPLAB 09:50
PROVIDERS: PCP Family Medicine; Visit Provider Family Medicine
DX: R97.20 Elevated prostate specific antigen [PSA] (principal)
CPT/HCPCS: 36415; 82565; 84153; G0103

== ENCOUNTER → 2025-05-12 | Outpatient (CLI) | payer MEDICARE, OTHER, SELFPAY ==
[2025-05-12 12:10] LABS: Hematocrit 41.6 % (40-54); Hemoglobin 13.7 g/dL (13.0-16.5); Immature Granulocytes Count 0.030 X10^3/uL (0.0-0.0); Mean Corp Hgb Conc 32.9 g/dL (32-36); Mean Corpuscular Volume 90.2 fL (80-94); Mean Platelet Vol. 9.4 fl (6.2-12.0); NRBC Flagged by Analyzer 0 % (0-5); Platelet Count 206 K/mm3 (150-450); RBC Distribution Width CV 12.7 % (11.6-14.6); RBC Distribution Width SD 42.3 fl (35.1-43.9); Red Blood Count 4.61 M/mm3 (4.6-6.2); White Blood Count 7.4 K/mm3 (4.4-11.0)
[2025-05-12 12:57] LABS: AST(SGOT) 19 U/L (<=37); Alanine Aminotransfer ALT/SGPT 12 U/L (<=46); Albumin, Serum 4.1 g/dL (3.4-4.8); Alkaline Phosphatase 78 U/L (40-129); Anion Gap 7 (5-15); BUN 26 mg/dL (4-19); BUN/Creat Ratio 25.8 RATIO (10-20); Calcium,Total 9.3 mg/dL (7.6-11.0); Carbon Dioxide 26.3 mmol/L (21.0-32.0); Chloride 105 mmol/L (98-108); Globulin 2.8 g/dL (2.2-4.2); Glucose 96 mg/dL (70-99); PSA,Total - Annual Screen 2.10 ng/mL (0.02-4.00); Potassium 5.2 mmol/L (3.3-5.1)
[2025-05-12 13:48] LABS: Cholesterol 158 mg/dL (<=200); Low Density Lipoprotein Calc. 94 mg/dL; Triglycerides 54 mg/dL; Very Low Density Lipoprotein 11 mg/dL (5-40); cholesterol:hdl ratio screen 2.99
== END | disposition home or self-care (01) ==
LOC: MFPLAB 10:47
PROVIDERS: PCP Family Medicine; Referring Provider Family Medicine; Visit Provider Family Medicine
DX: Z00.00 Encounter for general adult medical examination without abnormal findings (principal); Z12.5 Encounter for screening for malignant neoplasm of prostate
CPT/HCPCS: 36415; 80053; 80061; 84153; 85025; G0103